=== PATIENT | female | born 1965 | race Two or more races ===

== ENCOUNTER 2018-10-26 20:04 | Emergency (ER) | payer OTHER ==
[~2018-10-26] VITALS: Ht 154.9 cm; Wt 69.5 kg
--- NOTE | 2018-10-26 20:52 | NUR ---
FIRST CONTACT WITH PT. PT C/O BILATERAL POSTERIOR NECK PAIN AND MITTAL WITH V/N X 1 WEEK. PAIN LEVEL 7/10 AT THIS TIME. PT AOX4. RESPS EVEN AND UNLABORED. EDMD AT BED SIDE. EDMD EXPLAINES PLAN OF CARE. PT'S FAMILY ARE AT BED SIDE. ALL MONITORS IN PLACE. CALL LIGHT WITHIN REACH. WILL CONTINUE TO MONITOR.
--- NOTE | 2018-10-26 20:52 | NUR ---
Note undone in EDM - 10/26/18 at 2053 by MICHAEL FIRST CONTACT WITH PT. PT C/O BILATERAL POSTERIOR NECK PAIN AND MITTAL WITH V/N X 1 WEEK. PAIN LEVEL 7/10 AT THIS TIME. EDMD AT BED SIDE. EDMD EXPLAINES PLAN OF CARE. PT'S FAMILY ARE AT BED SIDE. ALL MONITORS IN PLACE. CALL LIGHT WITHIN REACH. WILL CONTINUE TO MONITOR.
--- NOTE | 2018-10-26 20:54 | NUR ---
PT IN XRAY.
[2018-10-26] MEDS ORDERED: METHOCARBAMOL 750 MG TABLET ONE (20:59)
[2018-10-26] MEDS ORDERED: MECLIZINE CHEWABLE 25 MG TAB ONE (20:59)
[2018-10-26] MEDS ORDERED: OXYcodone/APAP 5/325MG TABLET PO ONE (21:00)
[2018-10-26] MEDS ORDERED: MECLIZINE CHEWABLE 25 MG TAB PO ONE (21:00)
[2018-10-26] MEDS ORDERED: KETOROLAC 30 MG/1 ML ONE (21:00)
[2018-10-26] MEDS ORDERED: KETOROLAC 30 MG/1 ML IM/IV ONE (21:00)
[2018-10-26] MEDS ORDERED: ONDANSETRON ODT 4 MG ONE (21:00)
[2018-10-26] MEDS ORDERED: ONDANSETRON ODT 4 MG PO ONE (21:00)
[2018-10-26] MEDS ORDERED: OXYcodone/APAP 5/325MG TABLET ONE (21:00)
[2018-10-26] MEDS ORDERED: METHOCARBAMOL 750 MG TABLET PO ONE (21:00)
--- NOTE | 2018-10-26 21:18 | NUR ---
PT MEDICATED PER EMAR. PT TOLERATED WELL. ALL MONITORS IN PLACE. CALL LIGHT WITHIN REACH. PT AOX4. RESPS EVEN AND UNLABORED. PT'S FAMILY ARE AT BED SIDE. DENIES ANY NEEDS AND CONCERNS AT THIS TIME.
--- NOTE | 2018-10-26 21:54 | NUR ---
PT RESTING IN GURNEY. PAIN LEVEL REDUCES. PAIN LEVEL 5/10 NOW. PT AOX4. RESPS EVEN AND UNLABORED. PT'S AT BED SIDE. AWAITING DC ORDER.
[2018-10-26 22:15] VITALS: BP 130/84
== END 2018-10-26 22:17 | disposition home or self-care (01) ==
LOC: ED 22:13
DX: S16.1XXA Strain of muscle, fascia and tendon at neck level, initial encounter (principal); G44.201 Tension-type headache, unspecified, intractable; X58.XXXA Exposure to other specified factors, initial encounter; Y93.89 Activity, other specified; Y92.89 Other specified places as the place of occurrence of the external cause; Y99.8 Other external cause status
CPT/HCPCS: 72050; 93005; 96372; 99284; J1885; Q0162